=== PATIENT | female | born 2000 | race Caucasian/White ===

== ENCOUNTER 2022-06-17 19:59 | Emergency (ER) | payer OTHER, SELFPAY ==
--- NOTE | ~2022-06-17 | XR_ITS ---
EXAMINATION: XR chest 2V Exam Date/Time: 06/17/2022 20:40 [facility] HISTORY: chest pain with deep breath X 2WKS, LT SIDED PAIN Comparison: None available. RESULT: Lines, tubes, and devices: None. Lungs and pleura: Clear. Cardiomediastinal silhouette: Normal. Other: No acute osseous or upper abdominal finding. IMPRESSION: No acute cardiopulmonary process. Reviewed, dictated and finalized at location [facility]
[2022-06-17 20:14] VITALS: BP 125/73; PULSE 73; RESP 16; TEMP 36.4; O2SAT 100
[2022-06-17 21:37] VITALS: O2SAT 100
--- NOTE | 2022-06-17 21:39 | PC.NURSE ---
Pt to ED with ongoing cough. She was treated at [facility] and diagnosed with pleurisy. When asked what changed that made her come to this ED pt states I forgot to get a work note and I started feeling worse so I couldn't go into work . Skin warm and dry. No increased work of breathing. Respiratory rate regular and non-labored.
--- NOTE | 2022-06-17 22:10 | ECG_ITS ---
Measurements Intervals [place] Rate: 61 P: -13 [place]: 150 QRS: 64 QRSD: 99 T: 29 QT: 370 QTc: 373 Interpretive Statements SINUS RHYTHM INCOMPLETE RIGHT BUNDLE BRANCH BLOCK BORDERLINE T WAVE ABNORMALITY- ANTERIOR LEADS BORDERLINE ECG NO PREVIOUS ECG AVAILABLE FOR COMPARISON Electronically Signed On 06-18-2022 7:56:52 [employer] by Eliu Ayoub D.O.
[2022-06-17 22:31] LABS: Basophils Percent Auto 0.4 % (0.2-1.2); Eosinophils Absolute Auto 0.1 K/mm3 (0-0.3); Eosinophils Percent Auto 1.4 % (0-4.4); Hematocrit 35.1 % (37.0-47.0); Hemoglobin 10.8 g/dL (12.0-15.0); Immature Granulocyte Absolute 0.01 K/mm3 (0.00-0.031); Immature Granulocyte Percent A 0.2 % (0-0.5); Lymphocytes Absolute Auto 1.57 K/mm3 (0.9-3.2); Lymphocytes Percent Auto 32.4 % (18.3-44.2); Mean Corpuscular HGB Conc 30.8 g/dl (32-36); Mean Corpuscular Hemoglobin 24.4 pg (26-34); Mean Corpuscular Volume 79.4 fl (80-100); Mean Platelet Volume 9.6 fl (7.4-10.4); Monocytes Absolute Auto 0.4 K/mm3 (0.1-0.6); Monocytes Percent Auto 7.8 % (2.6-8.5); Neutrophils Absolute Auto 2.8 K/mm3 (1.3-6.7); Neutrophils Percent Auto 57.8 % (45.5-73.1); Platelet Count Result 279 k/mm3 (150-375); Red Blood Count 4.42 M/mm3 (4.2-5.4); Red Cell Distribution Width 14.8 % (11.5-14.5); White Blood Count 4.9 K/mm3 (4.5-10.0)
--- NOTE | 2022-06-17 22:37 | ED.URI ---
HPI - URI/Sore Throat General Chief Complaint: Upper Respiratory Infection Stated Complaint: upper respiratory infection Time Seen by Provider: 06/17/22 21:59 Source: patient Mode of arrival: ambulatory Limitations: no limitations History of Present Illness HPI Narrative: This is a 22 year old female that presents to the ER for chest pain ongoing over the last couple of weeks. The pain is sharp and intermittent in nature. Reports she was evaluated at another facility 2 days ago for same and discharged. Her work note said she could return to work today. When she tried to return to work she was still experiencing pain, so she decided to be seen again. Reports the pain is worse with breathing and cough. Denies fever, lower extremity edema, recent surgery or travel, or exogenous estrogen use.. Related Data Allergies Allergy/AdvReac Type Severity Reaction Status Date / Time No Known Allergies Allergy Verified 06/17/22 20:19 Review of Systems Review of Systems: CONSTITUTIONAL: Denies fever ENT: Denies rhinorrhea, congestion, sore throat CARDIOVASCULAR: Reports chest pain. Denies edema. RESPIRATORY: Reports cough and dyspnea. All systems reviewed & are unremarkable except as noted in HPI and below PMFSH Past Medical History Medical History (Updated 06/18/22 @ 00:00 by Maryjane Reeder PA-C) No active medical problems Social History Social History (Updated 06/17/22 @ 22:38 by Maryjane Reeder PA-C) Smoking status: Never smoker Alcohol intake: never Substance use: never Exam Narrative: GENERAL: Well-appearing, well-nourished, and in no acute distress. HEAD: Normocephalic, atraumatic. EYES: EOMI. ENT: Nares clear, no rhinorrhea or epistaxis. Mucous membranes moist. Oropharynx without tonsillar hypertrophy exudate or other lesions. NECK: Supple. No adenopathy or masses. CHEST: Clear to auscultation. No respiratory distress. No wheezes rales or rhonchi. Tender palpation of the left, anterior chest wall HEART: Regular rate and rhythm. No murmur heard. Normal peripheral pulses. EXTREMITIES: Normal range of motion. No edema. SKIN: Warm, dry, no rash. NEURO: No focal deficits. Alert and oriented x3. PSYCH: Normal mood and affect Course Vital Signs Vital signs: Vital Signs Temperature 97.6 F 06/17/22 20:14 Pulse Rate 73 06/17/22 20:14 Respiratory Rate 16 06/17/22 20:14 Blood Pressure 125/73 06/17/22 20:14 Pulse Oximetry 100 06/17/22 20:14 Oxygen Delivery Room Air 06/17/22 20:14 Temperature 97.6 F 06/17/22 20:14 Pulse Rate 73 06/17/22 20:14 Respiratory Rate 16 06/17/22 20:14 Blood Pressure 125/73 06/17/22 20:14 Pulse Oximetry 100 06/17/22 21:37 Oxygen Delivery Room Air 06/17/22 21:37 MDM - URI/Sore Throat MDM Narrative Medical decision making narrative: Patient presents to the emergency department for sharp, intermittent chest pain ongoing over the last couple of weeks. She was evaluated at another ER for this 2 days ago and discharged. Reports she tried to go back to work again today but she was having pain again. She is afebrile and nontoxic-appearing. Her vitals are stable. Oxygen saturation is soon on room air. Lungs are clear on the. CBC shows microcytic anemia with hemoglobin of 10.8. White blood cell count is normal. Metabolic panel without concerning findings. EKG without acute changes and baseline troponin is negative. Chest x-ray without acute cardiopulmonary abnormality. PERC criteria negative. Patient updated on work-up. Instructed to rest, take Tylenol or ibuprofen as needed for pain and have follow-up with primary provider. She was given warnings to return to the ER Differential Diagnosis Differential diagnosis: Likely viral infection, bronchitis and other (chest wall pain, pneumonia, PE) Lab Data Attestation: I reviewed the patient's lab results. 06/17/22 22:26 06/17/22 22:26 Labs: Lab Results 06/17/2206/08
[2022-06-17 22:41] LABS: Potassium 4.2 mmol/L (3.4-5.0)
[2022-06-17 22:42] LABS: INR 1.1; Partial Thromboplastin Time 33.8 SECONDS (22.3-36.8); Prothrombin Time 13.6 Seconds (11.1-14.7)
[2022-06-17 22:43] LABS: Anion Gap 3 mmol/L (8-16); Blood Urea Nitrogen 7 mg/dL (7-17); Calcium 8.6 mg/dL (8.4-10.2); Carbon Dioxide 28 mmol/L (22-30); Chloride 104 mmol/L (98-107); Estimated CRCL calculation 162 ml/min; Estimated Glomerular Filt Rate > 60; Glucose 84 mg/dL (65-110); Sodium 135 mmol/L (137-145)
[2022-06-17 22:53] LABS: Troponin I < 0.012 ng/mL (0.000-0.034)
[2022-06-17 23:07] LABS: Influenza A QL RT-PCR Negative (Negative); Influenza B QL RT-PCR Negative (Negative); SARS-CoV-2 RNA PCR Negative
[2022-06-17] MEDS: ACETAMINOPHEN 500 MG TABLET 1000 MG PO (23:14)
[2022-06-18 00:21] VITALS: BP 111/68; PULSE 70; RESP 14; O2SAT 99
== END 2022-06-18 00:22 | disposition home or self-care (01) ==
PROVIDERS: Family Medicine; Emergency Provider Physician Assistant
DX: R07.9 Chest pain, unspecified (principal); D64.9 Anemia, unspecified; Z20.822 Contact with and (suspected) exposure to COVID-19
CPT/HCPCS: 36415; 71046; 80048; 84484; 85025; 85610; 85730; 87636; 93005; 99284; A9270